=== PATIENT | male | born 1965 | race Caucasian/White ===

== ENCOUNTER 2017-05-01 09:52 | Inpatient (IN) | payer OTHER ==
[~2017-05-01] VITALS: Ht 185.4 cm; Wt 131.5 kg
[2017-05-01 10:06] VITALS: BP 106/68
[2017-05-01] MEDS ORDERED: TRULICITY1.5 MG/0.5 SUBQ (10:12)
[2017-05-01 10:30] LABS: HEMOGLOBIN 14.5 gm/dL (14.0-18.0); MCH 29.1 pg (26.0-34.0); MCHC 33.6 g/dL (28.0-37.0); MCV 86.4 fL (80.0-100.0); MPV 9.4 fl. (7.2-11.1); NUCLEATED RBCS 0 /100WBC; PLATELET COUNT* 193 thou/uL (150-400); RBC 4.98 mil/uL (4.50-6.00); RDW-CV 13.5 % (10.5-14.5); WBC 14.3 thou/uL (4.0-11.0)
[2017-05-01 10:35] LABS: ANION GAP 13 mmol/L (7-16); BUN 30 mg/dL (7-18); CALCIUM 8.6 mg/dL (8.5-10.1); CHLORIDE 92 mmol/L (98-107); CO2 27 mmol/L (21-32); CREATININE 1.5 mg/dL (0.6-1.3); GLUCOSE 314 mg/dL (70-99); POTASSIUM 3.9 mmol/L (3.5-5.1); SODIUM 132 mmol/L (136-145)
[2017-05-01 10:39] LABS: URINE BLOOD 1+ (Negative); URINE CLARITY CLEAR; URINE COLOR YELLOW; URINE GLUCOSE-RANDOM 2+ (Negative); URINE KETONES 2+ (Negative); URINE LEUKOCYTES-REFLEX NEGATIVE (Negative); URINE NITRITE-REFLEX NEGATIVE (Negative); URINE PROTEIN 1+ (Negative); URINE SPECIFIC GRAVITY 1.025 (1.005-1.030); URINE UROBILINOGEN >= 8.0 E.U./dl (0.2-1.0)
[2017-05-01 10:42] LABS: ICTOTEST (BILI CONFIRMATORY) Positive (Negative); URINE BILIRUBIN 2+ (Negative)
[2017-05-01 10:48] LABS: ALBUMIN 2.6 g/dL (3.4-5.0); ALKALINE PHOSPHATASE 103 U/L (46-116); LIPASE 67 U/L (73-393); NT-PRO BRAIN NAT PEPTIDE 853 pg/mL (<300); SGOT 46 U/L (15-37); SGPT 59 U/L (30-65); TOTAL BILIRUBIN 1.7 mg/dL (<0.1-1.0); TOTAL PROTEIN 7.6 g/dL (6.4-8.2); TROPONIN-I LEVEL <0.06 ng/mL (<0.06)
[2017-05-01 10:55] LABS: BACTERIA-REFLEX 1-9 Few /HPF (None Seen); MUCUS 4-6 Moderate strn/LPF (None Seen); SQUAMOUS 0-3 Few /LPF (0-3); URINE RBC 3-10 Few /HPF (0-2); URINE WBC-REFLEX 0-5 Rare /HPF (0-5)
[2017-05-01 10:57] LABS: FINE GRANULAR CASTS 0-3 Few /LPF (None Seen); HYALINE CASTS 0-3 Few /LPF (None Seen)
[2017-05-01 10:58] LABS: COARSE GRANULAR CASTS 0-3 Few /LPF (None Seen); CRYSTALS None Seen /LPF (None Seen)
[2017-05-01 11:06] LABS: ABSOLUTE LYMPHOCYTES 0.7 thou/uL (0.8-5.3); ABSOLUTE MONOCYTES 0.9 thou/uL (0.0-1.2); ABSOLUTE NEUTROPHILS 12.7 thou/uL (1.6-8.1)
[2017-05-01 11:07] LABS: ANISOCYTOSIS 1+; PLATELET ESTIMATE ADEQUATE; POIKILOCYTOSIS 1+
[2017-05-01 12:26] LABS: AMP/METHAMP Negative (Negative); BARBITURATES Negative (Negative); BENZODIAZEPINES Negative (Negative); COCAINE Negative (Negative); METHADONE Negative (Negative); OPIATES Negative (Negative); PCP Negative (Negative); THC Negative (Negative)
[2017-05-01 13:28] VITALS: BP 106/68
[2017-05-01 14:08] VITALS: BP 146/74
--- NOTE | 2017-05-01 15:50 | EKG ---
[place] [address] ELECTROCARDIOGRAM REPORT Name: HARRY SOL Room: [address] ADM IN M.R.#: [id number] Admission: 05/01/17 Attend Phys: Nell Rodgers Discharge: Date of : 61 Report #: [id number] THIS REPORT FOR: //name// [facility] ED Test Date: 2017-05-01 Test Time: 10:12:49 Pat Name: HARRY SOL Department: Room: [facility] Gender: M Stenotypist: : 1965 Requested By: Soto Vazquez Order Number: [id number] MD: Carlos Pedraza Measurements Intervals [place] Rate: 83 P: 33 MI: 173 QRS: -42 QRSD: 102 T: 1 QT: 372 QTc: 437 Interpretive Statements Sinus rhythm Atrial premature complex Left anterior fascicular block Baseline wander in lead(s) I,II,aVR,aVL,aVF,V1,V3,V4,V5 No previous ECG available for comparison Electronically Signed On 05-01-2017 15:50:40 CASTING MACHINE SET UP OPERATOR by Carlos Pedraza [email or web address] <ELECTRONICALLY SIGNED> By: Carlos Pedraza MD, [facility] 05/01/17 1550 1012 [id number] Carlos Pedraza MD, [facility] /EPI
[2017-05-01 20:00] VITALS: BP 119/54
[2017-05-01 21:34] LABS: INFLUENZA A ANTIGEN None Detected (None Detect); INFLUENZA B ANTIGEN None Detected (None Detect)
[2017-05-02] VITALS: BP 154/74
[2017-05-02 04:41] VITALS: BP 155/55
[2017-05-02 04:53] LABS: HEMATOCRIT 37.7 % (42.0-52.0); HEMOGLOBIN 12.6 gm/dL (14.0-18.0); MCHC 33.4 g/dL (28.0-37.0); MPV 9.3 fl. (7.2-11.1); RBC 4.33 mil/uL (4.50-6.00); RDW-CV 13.5 % (10.5-14.5)
[2017-05-02 04:59] LABS: CALCIUM 7.5 mg/dL (8.5-10.1); CREATININE 1.2 mg/dL (0.6-1.3); POTASSIUM 3.7 mmol/L (3.5-5.1)
[2017-05-02 08:25] VITALS: BP 126/55
[2017-05-02 15:00] VITALS: BP 130/57
[2017-05-02 23:49] VITALS: BP 141/59
[2017-05-03 04:09] LABS: ABSOLUTE MONOCYTES 1.4 thou/uL (0.0-1.2); ABSOLUTE NEUTROPHILS 13.7 thou/uL (1.6-8.1); BASOPHILS 0.3 %; HEMATOCRIT 36.9 % (42.0-52.0); HEMOGLOBIN 12.4 gm/dL (14.0-18.0); LYMPHOCYTES 6.1 %; MCH 28.6 pg (26.0-34.0); MCHC 33.7 g/dL (28.0-37.0); MCV 84.8 fL (80.0-100.0); MONOCYTES 8.9 %; MPV 8.9 fl. (7.2-11.1); NUCLEATED RBCS 0 /100WBC; PLATELET COUNT* 165 thou/uL (150-400); POLYS 84.7 %; RBC 4.35 mil/uL (4.50-6.00); RDW-CV 13.4 % (10.5-14.5); WBC 16.2 thou/uL (4.0-11.0)
[2017-05-03 04:18] LABS: ALBUMIN 1.8 g/dL (3.4-5.0); CALCIUM 7.2 mg/dL (8.5-10.1); CREATININE 1.2 mg/dL (0.6-1.3); POTASSIUM 3.5 mmol/L (3.5-5.1); TOTAL BILIRUBIN 1.7 mg/dL (<0.1-1.0); TOTAL PROTEIN 5.9 g/dL (6.4-8.2)
--- NOTE | 2017-05-03 08:05 | CON ---
[address] [address] CONSULTATION Name: EBENEZERHARRY Whitt Room: [address] IN .R.#: [id number] Admission: 05/01/17 Attend Phys: Nell Rodgers Discharge: Date of : 61 Report #: [id number] THIS REPORT FOR: //name// CC: Pablito Daniel Mercer DATE OF SERVICE: 05/02/2017 INFECTIOUS DISEASE CONSULTATION ATTENDING PHYSICIAN: Pablito Herman MD REASON FOR EVALUATION: Group B strep septicemia. HISTORY OF PRESENT ILLNESS: Chart reviewed, the patient examined. This is a 51-year-old male with diabetes mellitus type 2 diagnosed roughly 7 years ago who had been ill for about 6 days prior to admission yesterday, associated fevers, chills, some nausea, emesis. Had been evaluated including influenza testing, which was negative. He was admitted and placed on antimicrobial therapy. He was confirmed to have positive blood cultures identified as group B strep and received vancomycin as well as meropenem. He does admit to ongoing issues with cough, generalized myalgias, has had poor p.o. intake. Denies significant abdominal related pain. ALLERGIES: None known. MEDICINES: Has ____, meropenem, enoxaparin, vancomycin, metoclopramide, p.r.n. analgesics, antiemetics. PAST MEDICAL HISTORY: Diabetes mellitus type 2. SOCIAL HISTORY: Nonsmoker, no ethanol. FAMILY HISTORY: Noncontributory. REVIEW OF SYSTEMS: As above. PHYSICAL EXAMINATION: GENERAL: He appears ill, borderline toxic, moderate distress, he is lethargic, although not encephalopathic. VITAL SIGNS: Temperature 99.8, T-max 102.4, pulse 74, respirations 14, blood pressure 126/55. SKIN: Warm, dry, no rashes. HEENT: Has some injected conjunctivae. NECK: Supple. LUNGS: Somewhat diminished, few [place] [address] CONSULTATION Name: HARRY SOL Room: [address]#: [id number] Admission: 05/01/17 Attend Phys: Nell Rodgers Discharge: Date of : 61 Report #: [id number] HEART: Regular. I do not appreciate any murmur. ABDOMEN: Soft, somewhat obese, is mildly distended. There are no overt peritoneal signs. GENITOURINARY: Deferred. RECTAL: Deferred. LABORATORY DATA: Blood cultures as described above, group B strep. Prealbumin 6.6. Electrolytes: Sodium 132, potassium 3.7, chloride 97, bicarbonate 25, BUN and creatinine 23 and 1.2, glucose of 246. CBC: White count of 16.0, H and H 12.6 and 37.7, platelets of 162. Influenza antigen was negative. Lactic acid 1.8. CT abdomen and pelvis, no acute process. It is notable that his lung bases are clear. ASSESSMENT: Group B strep septicemia. The patient with diabetes mellitus, I am not so sure we have a clear source, generally is a genitourinary tract, although it is not evidence at this point. Certainly may be secondary to influenza infection. We will continue antimicrobials. In addition, we will add Tamiflu as well. He is certainly at risk for getting worse before it gets better. Continue to identify the original source, which may not be forthcoming. <ELECTRONICALLY SIGNED> By: Luis Armando Pierson MD 05/03/17 0805 1644 [id number] Pierson MD /nt
[2017-05-03 08:16] VITALS: BP 147/75
[2017-05-03 16:45] VITALS: BP 165/78
--- NOTE | 2017-05-03 16:56 | 2DMMODE ---
[place] [address] 2 D/M-MODE ECHOCARDIOGRAM Name: HARRY SOL Room: [address] IN [facility]#: [id number] Admission: 05/01/17 Attend Phys: Pablito Herman Discharge: Date of : 61 Date of Service: 05/03/17 1655 Report #: [id number] THIS REPORT FOR: //name// APPROVED REPORT Study performed: 05/03/2017 13:46:47 EXAM: Comprehensive 2D, Doppler, and color-flow Echocardiogram Patient Location: In-Patient Room #: [facility] Status: routine BSA: 2.52 HR: 85 bpm BP: 147/75 mmHg Rhythm: NSR Other Information Study Quality: Good Indications Sepsis 2D Dimensions LVEF(%): 60.04 (>50%) IVSd: 12.12 (7-11mm) LVOT Diam: 24.45 (18-24mm) LVDd: 53.10 mm PWd: 11.33 (7-11mm) Ascending Ao: 35.64 (22-36mm) LVDs: 35.97 (25-40mm) Aortic Root: 35.16 mm Calderon's LVEF: 60.04 % Volumes Left Atrial Volume (Systole) LA ESV Index: 28.50 mL/m2 Aortic Valve AoV Peak Mark.: 1.52 m/s AO Peak Gr.: 9.26 mmHg LVOT Max P.23 mmHg AO Mean Gr.: 5.12 mmHg LVOT Mean P.29 mmHg LVOT Max V: 1.34 m/s AO V2 VTI: 27.58 cm LVOT Mean V: 0.82 m/s BIN (VTI): 4.02 cm2 LVOT V1 VTI: 23.60 cm Mitral Valve E/A Ratio: 1.95 [place] [address] 2 D/M-MODE ECHOCARDIOGRAM Name: HARRY SOL Room: [address] IN .R.#: [id number] Admission: 05/01/17 Attend Phys: Pablito Herman Discharge: Date of : 61 Date of Service: 05/03/17 1655 Report #: [id number] MV Decel. Time: 174.04 ms MV E Max Mark.: 1.22 m/s MV PHT: 50.47 ms MVA (PHT): 4.36 cm2 TDI E/Lateral E': 9.38 E/Medial E': 8.13 Medial E' Mark.: 0.15 m/s Lateral E' Mark.: 0.13 m/s Pulmonary Valve PV Peak Mark.: 1.06 m/s PV Peak Gr.: 4.47 mmHg Left Ventricle The left ventricle is normal size. There is normal LV segmental wall motion. There is normal left ventricular wall thickness. Left ventricular systolic function is normal. The left ventricular ejection fraction is within the normal range. LVEF is 60-65%. The left ventricular diastolic function is normal. Right Ventricle The right ventricle is normal size. The right ventricular systolic function is normal. Atria The left atrium size is normal. The right atrium size is normal. Aortic Valve The aortic valve is normal in structure. No aortic regurgitation is present. There is no aortic valvular stenosis. Mitral Valve The mitral valve is normal in structure. There is no mitral valve regurgitation noted. No evidence of mitral valve stenosis. Tricuspid Valve The tricuspid valve is normal in structure. Unable to assess PA pressure. Trace tricuspid regurgitation. Pulmonic Valve The pulmonary valve is normal in structure. There is no pulmonic valvular regurgitation. Great Vessels The aortic root is normal in size[place] [address] 2 D/M-MODE ECHOCARDIOGRAM Name: EBENEZERHARRY Peri Room: [address] IN [facility]#: [id number] Admission: 05/01/17 Attend Phys: Pablito Herman Discharge: Date of : 61 Date of Service: 05/03/17 1655 Report #: [id number] visualized. Pericardium There is no pericardial effusion. <Conclusion> LVEF is 60-65%. There is normal LV segmental wall motion. No aortic regurgitation is present. There is no aortic valvular stenosis. There is no mitral valve regurgitation noted. No evidence of mitral valve stenosis. <ELECTRONICALLY SIGNED> By: Lavelle Denis MD, FACC 05/03/17 [phone] Lavelle Denis MD, FACC /INF
[2017-05-03 20:00] VITALS: BP 120/63
[2017-05-03 23:12] LABS: GLYCOHEMOGLOBIN (HGB A1C) 10.6 % (4.8-5.6)
[2017-05-04 04:13] LABS: HEMATOCRIT 37.3 % (42.0-52.0); HEMOGLOBIN 12.2 gm/dL (14.0-18.0); MCH 28.6 pg (26.0-34.0); MCHC 32.7 g/dL (28.0-37.0); MCV 87.5 fL (80.0-100.0); MPV 9.1 fl. (7.2-11.1); NUCLEATED RBCS 0 /100WBC; PLATELET COUNT* 187 thou/uL (150-400); RBC 4.27 mil/uL (4.50-6.00); RDW-CV 13.9 % (10.5-14.5); WBC 13.5 thou/uL (4.0-11.0)
[2017-05-04 04:46] LABS: ALBUMIN 1.9 g/dL (3.4-5.0); CALCIUM 7.8 mg/dL (8.5-10.1); CREATININE 1.3 mg/dL (0.6-1.3); POTASSIUM 3.5 mmol/L (3.5-5.1); TOTAL BILIRUBIN 1.3 mg/dL (<0.1-1.0); TOTAL PROTEIN 6.3 g/dL (6.4-8.2)
[2017-05-04 04:50] LABS: PREALBUMIN 6.4 mg/dL (18.0-35.7)
[2017-05-04 06:51] LABS: ABSOLUTE LYMPHOCYTES 1.1 thou/uL (0.8-5.3); ABSOLUTE MONOCYTES 1.4 thou/uL (0.0-1.2); ABSOLUTE NEUTROPHILS 11.1 thou/uL (1.6-8.1); PLATELET ESTIMATE ADEQUATE
[2017-05-04 08:30] VITALS: BP 140/70; BP 148/72
[2017-05-04 16:00] VITALS: BP 151/101
[2017-05-04 22:00] VITALS: BP 140/62
[2017-05-05 04:11] LABS: CALCIUM 7.4 mg/dL (8.5-10.1); CREATININE 1.1 mg/dL (0.6-1.3); POTASSIUM 3.4 mmol/L (3.5-5.1)
[2017-05-05 04:12] LABS: ABSOLUTE EOSINOPHILS 0.1 thou/uL (0.0-0.7); ABSOLUTE LYMPHOCYTES 1.3 thou/uL (0.8-5.3); ABSOLUTE MONOCYTES 1.2 thou/uL (0.0-1.2); ABSOLUTE NEUTROPHILS 10.2 thou/uL (1.6-8.1); BASOPHILS 0.2 %; EOSINOPHILS 0.5 %; HEMATOCRIT 33.7 % (42.0-52.0); HEMOGLOBIN 11.1 gm/dL (14.0-18.0); LYMPHOCYTES 10.5 %; MCH 28.8 pg (26.0-34.0); MONOCYTES 9.1 %; MPV 9.1 fl. (7.2-11.1); NUCLEATED RBCS 0 /100WBC; PLATELET COUNT* 178 thou/uL (150-400); POLYS 79.7 %; RBC 3.87 mil/uL (4.50-6.00); WBC 12.8 thou/uL (4.0-11.0)
[2017-05-05 08:45] VITALS: BP 147/95
[2017-05-05 17:47] VITALS: BP 138/70
[2017-05-05 20:15] VITALS: BP 140/56
[2017-05-06 04:22] LABS: ALBUMIN 1.8 g/dL (3.4-5.0); CALCIUM 7.9 mg/dL (8.5-10.1); CREATININE 1.1 mg/dL (0.6-1.3); POTASSIUM 3.4 mmol/L (3.5-5.1); TOTAL PROTEIN 6.1 g/dL (6.4-8.2)
[2017-05-06 04:32] LABS: ABSOLUTE EOSINOPHILS 0.1 thou/uL (0.0-0.7); ABSOLUTE LYMPHOCYTES 1.5 thou/uL (0.8-5.3); ABSOLUTE NEUTROPHILS 9.3 thou/uL (1.6-8.1); BASOPHILS 0.3 %; EOSINOPHILS 0.9 %; HEMATOCRIT 33.7 % (42.0-52.0); HEMOGLOBIN 11.5 gm/dL (14.0-18.0); LYMPHOCYTES 12.7 %; MCH 29.1 pg (26.0-34.0); MCV 85.5 fL (80.0-100.0); MONOCYTES 8.6 %; MPV 9.2 fl. (7.2-11.1); NUCLEATED RBCS 0 /100WBC; PLATELET COUNT* 205 thou/uL (150-400); POLYS 77.5 %; RBC 3.94 mil/uL (4.50-6.00); RDW-CV 13.9 % (10.5-14.5)
[2017-05-06 08:30] VITALS: BP 160/76
[2017-05-06] MEDS ORDERED: ROCEPHIN 11 GM/1001 IV (16:14)
[2017-05-06] MEDS ORDERED: ENOXAPARIN30 MG/0.1 SUBQ (16:14)
[2017-05-06] MEDS ORDERED: HUMALOG100 UNIT/1 SUBQ (16:14)
[2017-05-06] MEDS ORDERED: TYLENOL325 MG PO (16:15)
[2017-05-06] MEDS ORDERED: ONDANSETRON HCL4 M2 IV (16:16)
[2017-05-06 16:18] VITALS: BP 160/76
[2017-05-06] MEDS ORDERED: REGLAN 10 MG TA10 MG IV (16:18)
[2017-05-06 16:30] VITALS: BP 153/72
--- NOTE | 2017-05-15 13:02 | CON ---
[address] [address] CONSULTATION Name: HARRY SOL Room: [address] IN M.R.#: [id number] Admission: 05/01/17 Attend Phys: Nell Rodgers Discharge: 05/06/17 Date of : 61 Report #: [id number] THIS REPORT FOR: //name// CC: Pablito Ronquillo NP CHIEF COMPLAINT AND HISTORY OF PRESENT ILLNESS: A 51-year-old male admitted through the Emergency Room 3 days ago for nausea, vomiting, dehydration and malaise. He is a poorly controlled type 2 diabetic with an ulceration to the left plantar first MTP with cellulitis. His blood cultures grew group B streptococcus x 2. Left foot radiographs negative for osteomyelitis. For roughly 6 days prior to admission, he had nausea, vomiting, fevers and chills. He denies any injury to the left foot. He previously presented to [place] and had a negative flu test. His flu test here was also negative. He is currently on parenteral ceftriaxone. There are no vascular studies for review. He denies a history of vascular surgery to either extremity. LABORATORY DATA: WBC 13.5, RBC 4.27, hemoglobin 12.2, hematocrit 37.3, platelets 187. BUN 14, creatinine 1.3, glucose 208, albumin 1.9, hemoglobin A1c 10.6. PHYSICAL EXAMINATION: There is a dry keratoma to the left plantar first metatarsal head with inflammation which extends to the dorsal medial foot overlying the first and second MTP joints. There is no visible granulation or drainage. Upon debridement of the keratoma, there is an underlying ulceration into the subcutaneous tissue layer that measures 2.0 x 2.0 x 0.3 cm. I am not able to probe down to bone or joints. I am unable to express any purulence. There is some malodor and scant serous drainage to the wound bed. He has +2 nonpitting edema to both legs, the left foot and ankle greater due to the cellulitis. He has palpable dorsalis pedis and posterior tibial pulses bilaterally. There is no pallor or cyanosis to his feet. His feet are nonpainful to touch or during the wound debridement. He has extensive diabetic peripheral sensory neuropathy to the plantar and dorsal feet extending to the ankles. Negative popliteal adenopathy to either extremity. Onychomycosis, tinea pedis, generalized dry skin with some hemosiderosis. IMPRESSION: 1. 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 2. Type 2 diabetes mellitus, poor glycemic control, diabetes, diabetic peripheral neuropathy, cellulitis, left lower extremity. There is cellulitis to left foot. PLAN: Excisional ulcer debridement to the left foot wound with a scalpel to excise subcutaneous tissue, slough and callus. This was an excision of subcutaneous tissue. A portion of tissue was sent [place] [address] CONSULTATION Name: HARRY SOL Room: [address] IN ..#: [id number] Admission: 05/01/17 Attend Phys: Nell Rodgers Discharge: 05/06/17 Date of : 61 Report #: [id number] unable to probe to any deeper structures through the wound bed, no purulence was expressed. The wound was cleansed and dressed with Aquacel Ag, 4 x 4s, Kerlix and Galindo. I ordered MRI without contrast and noninvasive arterial Doppler examinations of bilateral lower extremities. The patient may be minimally ambulatory in a surgical shoe for short distances. I discussed with Dr. Dove, Infectious Disease. We will follow the patient tomorrow. Should there be evidence of abscess, we will necessitate a formal incision and drainage in the operating room. <ELECTRONICALLY SIGNED> By: Wes Bird DPM 05/15/17 1302 1046 [id number] Bird DPM /shubham
--- NOTE | 2017-05-15 13:02 | CON ---
[address] [address] CONSULTATION Name: HARRY SOL Room: [address] IN M.R.#: [id number] Admission: 05/01/17 Attend Phys: Nell Rodgers Discharge: 05/06/17 Date of : 61 Report #: [id number] THIS REPORT FOR: //name// CC: Pablito Ronquillo NP DATE OF SERVICE: 05/05/2017 CHIEF COMPLAINT: Followup of cellulitis with diabetic mal perforans ulceration of left plantar first MTP joint. The patient is on parenteral ceftriaxone with good tolerance. First set of blood cultures grew group B streptococcus, second series is pending with no growth. He spiked a fever of 102.5 yesterday at 4:00 p.m. Then, he had fevers throughout the evening up to 102.0. Left MRI showed inflammatory subcutaneous soft tissue thickening and stranding with edema and fluid in the distal foot near the distal second metatarsal without evidence of osteomyelitis. LABORATORY DATA: WBC 12.8, RBC 3.87, hemoglobin 11.1, hematocrit 33.7, platelets 178. BUN 11, creatinine 1.1, glucose 190. PHYSICAL EXAMINATION: There is localized inflammation and erythema over the left dorsal second MTP. This has increased since yesterday and more concentrated to this area. There are definite clinical signs of subcutaneous abscess based on the foot appearance. The plantar ulceration to the first MTP does not probe to this region and is relatively unchanged since yesterday. His foot is warm with palpable pedal pulses and no pallor, cyanosis or signs of acute vascular embarrassment. He has diffuse cellulitis to the left dorsal foot, which is more centrally focused over the dorsomedial second MTP. IMPRESSION: Abscess, left dorsal second MTP region, type 2 diabetes mellitus. PLAN: An informed consent was signed at bedside and the foot was cleansed and prepped with alcohol and Betadine. A sterile #15 blade was used to create a curvilinear incision over the left dorsal second MTP towards the first intermetatarsal interspace at the focus of the infection. I was able to express roughly 3 mL of purulence which I cultured with an aerobic swab. The abscess was completely drained and flushed with wound cleanser and dried. It was packed with Aquacel Ag and dressed with ABDs, Kerlix and Galindo wrap. I discussed with Dr. Tasha Pierson, who examined the foot with me. I anticipate significant clinical improvement following the procedure. <ELECTRONICALLY SIGNED> By: Wes Bird DPM 05/15/17 1302 1340 [id number] Bird DPM /nt
== END 2017-05-06 17:08 | disposition short-term general hospital (02) | DRG 853 ==
LOC: M.ERS 09:52 → M.3W 12:20 → M.TBA-ER 12:20 → M.3W 13:48
PROVIDERS: Internal Medicine; Physician Assistant; ADMIT Internal Medicine
PROC: 0JBR0ZZ Excision of Left Foot Subcutaneous Tissue and Fascia, Open Approach (ICD-10-PCS; principal; 2017-05-05)
DX: A40.1 Sepsis due to streptococcus, group B (principal); J15.9 Unspecified bacterial pneumonia; A48.0 Gas gangrene; N17.9 Acute kidney failure, unspecified; L03.116 Cellulitis of left lower limb; L02.612 Cutaneous abscess of left foot; N39.0 Urinary tract infection, site not specified; R65.20 Severe sepsis without septic shock; B34.9 Viral infection, unspecified; E11.42 Type 2 diabetes mellitus with diabetic polyneuropathy; L97.529 Non-pressure chronic ulcer of other part of left foot with unspecified severity; E87.5 Hyperkalemia; E88.09 Other disorders of plasma-protein metabolism, not elsewhere classified; K52.9 Noninfective gastroenteritis and colitis, unspecified; E86.0 Dehydration; E11.65 Type 2 diabetes mellitus with hyperglycemia; E11.621 Type 2 diabetes mellitus with foot ulcer; Z79.899 Other long term (current) drug therapy; Z28.21 Immunization not carried out because of patient refusal; Z83.3 Family history of diabetes mellitus